=== PATIENT | male | born 1960 | race Caucasian/White ===

== ENCOUNTER 2016-10-10 09:43 | Emergency (ER) | payer BC, MEDICARE ==
[2016-10-10] MEDS ORDERED: METOCLOPRAMIDE HCL 5 MG/ML 2ML VIAL ONE (10:29)
[2016-10-10] MEDS ORDERED: KETOROLAC TROMETHAMINE 15 MG/ML VIAL ONE (10:29)
[2016-10-10] MEDS ORDERED: DIPHENHYDRAMINE HCL 50 MG/1 ML VIAL ONE (10:29)
[2016-10-10] MEDS ORDERED: LACTATED RINGERS 1,000 ML ONE (10:29)
== END 2016-10-10 13:16 | disposition home or self-care (01) ==
LOC: ED 09:43
DX: R51 Headache (principal); R11.0 Nausea; I10 Essential (primary) hypertension; Z87.891 Personal history of nicotine dependence
CPT/HCPCS: 96375 ×2; 99283 ×2; 96374; J1200; J2765; J1885; J7120